=== PATIENT | male | born 1985 | race African-American/Black ===

== ENCOUNTER 2018-10-02 15:49 | Emergency (ER) | payer OTHER ==
[2018-10-02 15:55] VITALS: BP 135/79; PULSE 74; TEMP 98.9; BMI 29.0
[2018-10-02] MEDS ORDERED: DIPHTH,PERTUSS(ACELL),TET 0.5 ML DISP.SYRIN IM ONE ×2 (16:15→16:45)
--- NOTE | 2018-10-02 16:17 | PDOC ---
History of Present Illness - General Chief Complaint: Pain Stated Complaint: SWOLLEN TOE Time Seen by Provider: 10/02/18 16:01 History Source: Patient Exam Limitations: No Limitations - History of Present Illness Initial Comments: 10/02/18 16:18 onset of pain and swelling to right 4th toe, states onset was earlier in the week, sought attention at another hospital where they gave him an x-ray and Naprosyn for pain relief but no other treatment. Since that time has progressively worsened to now a much greater swelling however admits to clipping his toenails too short and having history of paronychia left infections. 10/02/18 16:41 Occurred: reports: last week Severity: reports: mild, moderate Pain Location: reports: lower extremity (4th right toe ) Method of Injury: Yes: unknown Associated Symptoms (Fall): denies symptoms Past History - Travel Traveled outside of the country in the last 30 days: No Close contact w/someone who was outside of country & ill: No - Past Medical History Allergies/Adverse Reactions: Allergies Allergy/AdvReac Type Severity Reaction Status Date / Time No Known Allergies Allergy Verified 10/02/18 15:51 Home Medications: Ambulatory Orders Naproxen [Naprosyn -] 500 mg PO BID PRN #14 tablet 03/21/14 Clindamycin [Cleocin -] 300 mg PO TID #21 capsule 10/02/18 Diabetes: No - Suicide/Smoking/Psychosocial Hx Smoking History: Current some day smoker Information on smoking cessation initiated: No Hx Alcohol Use: No Review of Systems - Review of Systems Able to Perform ROS?: Yes Is the patient limited [place] Citizen proficient: Yes Constitutional: Yes: See HPI. No: Symptoms Reported, Chills, Fever HEENTM: No: Symptoms Reported Musculoskeletal: Yes: Symptoms Reported, Joint Pain (fourth right) Integumentary: Yes: Symptoms Reported, See HPI, Erythema All Other Systems: Reviewed and Negative *Physical Exam - Vital Signs Last Vital Signs Temp Pulse Resp BP Pulse Ox 98.9 F 74 14 135/79 99 10/02/18 15:53 10/02/18 15:53 10/02/18 15:53 10/02/18 15:53 10/02/18 15:53 - Physical Exam General Appearance: Yes: Nourished, Appropriately Dressed, Apparent Distress, Mild Distress HEENT: positive: PATI, Normal ENT Inspection, TMs Normal, Pharynx Normal Neck: positive: Supple. negative: Tender Respiratory/Chest: positive: Lungs Clear Musculoskeletal: positive: Normal Inspection Extremity: positive: Normal Capillary Refill, Normal Range of Motion, Tender, Other (swollen, fluctuant, and erythematous fourth right toe extending to MTP. Is able to flex and extend but is exquisitely painful. Has pointing lesion to the distal lateral aspect of nail) Integumentary: positive: Erythema, Other Neurologic: positive: metal numerical control programmer II-XII NML intact, Fully Oriented, Alert, Normal Mood/ Affect, Normal Response, Motor Strength 5/5 Procedures - Incision and Drainage I&D Site: Right: Other (4th toe/ paronychia) Betadine cleansed: Yes Blade Size: 11 Complications: none Dressing: Yes ED Treatment Course - RADIOLOGY Radiology Studies Ordered: Category Date Time Status TOE(S) RIGHT [RAD] Stat Radiology 10/02/18 16:09 Ordered Progress Note - Progress Note Progress Note: Paronychia incised and drained with significant amount of purulent drainage expressed. Culture was sent, patient will be started on clindamycin and follow- up with podiatry or fell this week. *DC/Admit/Observation/Transfer Diagnosis at time of Disposition: Paronychia of fourth toe, right - Discharge Dispostion Disposition: HOME Condition at time of disposition: Stable Decision to Admit order: No - Prescriptions Prescriptions: Clindamycin [Cleocin -] 300 mg PO TID #21 capsule - Referrals Referrals: Jasvir Nathan MD [Staff Physician] - - Patient Instructions Printed Discharge Instructions: DI for Paronychia Additional Instructions: Rest, keep foot elevated Avoid heavy lifting or strenuous activity until healed Soak toe every 2-3 hours while awake for the next 2-3 days to keep continue to allow drainage Reapply bacitracin ointment and bulky dressing after each soaking May use ibuprofen or Tylenol for pain relief Followup with private physician in one to 2 days for wound check as needed Return immediately to emergency department or private doctor's for worsening redness, swelling, pain, streaking Take all of antibiotics until completed - Post Discharge Activity Forms/Work/School Notes: Back to Work
[2018-10-02] MEDS ORDERED: NAPROXEN 500 MG TABLET (FP) PO ONE (16:40)
[2018-10-02] MEDS ORDERED: NAPROXEN 500 MG TABLET (FP) ONE (16:45)
== END 2018-10-02 17:30 | disposition home or self-care (01) ==
LOC: JERFT 15:49
PROC: 0J9Q0ZZ Drainage of Right Foot Subcutaneous Tissue and Fascia, Open Approach (ICD-10-PCS; principal; 2018-10-02)
PROC: 3E0234Z Introduction of Serum, Toxoid and Vaccine into Muscle, Percutaneous Approach (ICD-10-PCS; 2018-10-02)
DX: L03.031 Cellulitis of right toe (principal)
CPT/HCPCS: 10060; 73660-TC-FY; 87070; 87186; 87205; 90471; 90715; 99281-25

== ENCOUNTER 2020-05-02 00:25 | Emergency (ER) | payer OTHER ==
[2020-05-02 00:59] VITALS: BP 138/87; PULSE 77; TEMP 98.5; BMI 29.3
[2020-05-02] MEDS ORDERED: ONDANSETRON 4 MG/2 ML VIAL IVPUSH ONE (01:16)
== END 2020-05-02 03:15 | disposition home or self-care (01) ==
LOC: JER 00:25
DX: M79.605 Pain in left leg (principal); R20.2 Paresthesia of skin
CPT/HCPCS: 73590-TC-LT-FY; 99285-25

== ENCOUNTER 2020-12-13 16:22 | Emergency (ER) | payer OTHER ==
[2020-12-13 16:31] VITALS: BP 153/93; PULSE 92; TEMP 98.3; BMI 26.7
[2020-12-13] MEDS ORDERED: SODIUM CHLORIDE 1,000 ML IV STA (17:24)
[2020-12-13] MEDS ORDERED: ONDANSETRON 4 MG/2 ML VIAL IVPUSH ONE (17:24)
[2020-12-13] MEDS ORDERED: ACETAMINOPHEN 1000 MG/100 ML VIAL (NON FORMULARY) IVPB ONE (17:24)
[2020-12-13] MEDS ORDERED: ACETAMINOPHEN INJECTION 100 ML IVPB ONE (17:35)
[2020-12-13] MEDS ORDERED: ONDANSETRON 4 MG/2 ML VIAL ONE (17:35)
[2020-12-13 18:18] LABS: BASO % 0.6 % (0-2.0); EOS % 3.3 % (0-4.5); HEMOGLOBIN 16.1 GM/dL (11.7-16.9); MCH 29.3 pg (25.7-33.7); MCHC 33.5 g/dl (32.0-35.9); MEAN CELL VOLUME 87.6 fl (80-96); MEAN PLT VOLUME 7.5 fl (7.5-11.1); MONO % 18.8 % (3.8-10.2); NEUT % 44.3 % (42.8-82.8); PLATELET COUNT 228 10^3/uL (134-434); RBC 5.48 M/mm3 (4.00-5.60); RDW 13.3 % (11.9-15.9); WHITE BLOOD COUNT 5.4 K/mm3 (4.0-10.0)
[2020-12-13 18:25] LABS: INR 0.99 (0.83-1.09)
[2020-12-13 18:36] LABS: BLOOD UREA NITROGEN 12.3 mg/dL (7-18); CALCIUM 9.3 mg/dL (8.5-10.1)
[2020-12-13 18:39] LABS: CREATININE 0.9 mg/dL (0.55-1.3)
[2020-12-13 18:41] LABS: BILIRUBIN,TOTAL 0.7 mg/dL (0.2-1); TOT PROT 8.2 g/dl (6.4-8.2)
[2020-12-13 19:50] LABS: URINE APPEARANCE CLEAR; URINE BILIRUBIN NEGATIVE (NEGATIVE); URINE COLOR YELLOW; URINE GLUCOSE (UA) NEGATIVE (NEGATIVE); URINE KETONE NEGATIVE (NEGATIVE); URINE LEUK ESTERASE NEGATIVE (NEGATIVE); URINE NITRITE NEGATIVE (NEGATIVE); URINE PROTEIN NEGATIVE (NEGATIVE); URINE UROBILINOGEN 0.2 mg/dL (0.2-1.0)
== END 2020-12-13 21:55 | disposition home or self-care (01) ==
LOC: JER 16:22
PROC: 3E0333Z Introduction of Anti-inflammatory into Peripheral Vein, Percutaneous Approach (ICD-10-PCS; principal; 2020-12-13)
PROC: 3E033GC Introduction of Other Therapeutic Substance into Peripheral Vein, Percutaneous Approach (ICD-10-PCS; 2020-12-13)
PROC: 3E0337Z Introduction of Electrolytic and Water Balance Substance into Peripheral Vein, Percutaneous Approach (ICD-10-PCS; 2020-12-13)
DX: R10.32 Left lower quadrant pain (principal)
CPT/HCPCS: 36415; 74177-TC; 80053; 81003; 82272; 83690; 85025; 85610; 87086; 99285-25; J0131; Q9967

== ENCOUNTER 2021-08-02 22:55 | Emergency (ER) | payer OTHER ==
[2021-08-02 23:01] VITALS: BP 143/87; PULSE 61; TEMP 98.2; BMI 34.8
[2021-08-02] MEDS ORDERED: LIDOCAINE VISCOUS 2% ORAL/TOP 100 ML BOTTLE MM ONE (23:30)
[2021-08-02] MEDS ORDERED: LIDOCAINE VISCOUS 2% ORAL/TOP 15 ML UNIT-DOSE CUP ONE (23:40)
[2021-08-02 23:55] LABS: BASO % 0.9 % (0-2.0); EOS % 5.7 % (0-4.5); HEMATOCRIT 43.6 % (35.4-49); HEMOGLOBIN 14.6 GM/dL (11.7-16.9); LYMPH % 38.9 % (8-40); MCH 30.1 pg (25.7-33.7); MCHC 33.6 g/dl (32.0-35.9); MEAN CELL VOLUME 89.5 fl (80-96); MEAN PLT VOLUME 7.6 fl (7.5-11.1); MONO % 8.3 % (3.8-10.2); NEUT % 46.2 % (42.8-82.8); PLATELET COUNT 227 10^3/uL (134-434); RBC 4.87 M/mm3 (4.00-5.60); RDW 13.2 % (11.9-15.9); WHITE BLOOD COUNT 5.3 K/mm3 (4.0-10.0)
[2021-08-02] MEDS ORDERED: LIDOCAINE VISCOUS 2% ORAL/TOP 15 ML UNIT-DOSE CUP MM ONE (23:58)
[2021-08-02] MEDS ORDERED: MAG HYDROX/AL HYDROX/SIMETH 30 ML UNIT-DOSE CUP PO ONE (23:58)
[2021-08-03 00:13] LABS: ALBUMIN 3.9 g/dl (3.4-5.0); BLOOD UREA NITROGEN 17.7 mg/dL (7-18); CALCIUM 8.7 mg/dL (8.5-10.1)
[2021-08-03 00:16] LABS: CREATININE 1.1 mg/dL (0.55-1.3)
[2021-08-03 00:18] LABS: BILIRUBIN,TOTAL 0.7 mg/dL (0.2-1); TOT PROT 7.2 g/dl (6.4-8.2)
[2021-08-03] MEDS ORDERED: MAG HYDROX/AL HYDROX/SIMETH 30 ML UNIT-DOSE CUP ONE (00:52)
[2021-08-03] MEDS ORDERED: LIDOCAINE VISCOUS 2% ORAL/TOP 15 ML UNIT-DOSE CUP ONE (00:52)
== END 2021-08-03 01:04 | disposition home or self-care (01) ==
LOC: JER 22:55
DX: R07.9 Chest pain, unspecified (principal)
CPT/HCPCS: 36415; 71046-TC-FY; 80053; 84484; 85025; 93005; 93010; 99284-25